=== PATIENT | female | born 1980 | race Caucasian/White ===

== ENCOUNTER → 2017-09-13 | Outpatient (CLI) | payer BC ==
[~2017-09-13] MED LIST: AC325T PO; ACHD5005 PO; AZIT-21 PO; CLC500CT PO; DCS100C PO; HYOS0.1216 PO; IBP800T PO; OXYC-109 PO; PREN1TAB39 PO; VANC10VI PO; VANC125C2 PO; VANCOMYCIN PO; bcp
--- NOTE | 2017-09-13 20:09 | Diagnostic Imaging Report ---
EXAMINATION: Transabdominal and transvaginal pelvic ultrasound. INDICATION: Irregular menstrual cycle. Pelvic pain, dyspareunia. FINDINGS: The uterus is 8.3 x 4.9 x 4.0 cm. The endometrial stripe is 0.7 cm in thickness. The myometrium is fairly heterogeneous with no focal mass identified. The endometrial stripe is 0.8 cm in thickness. The right ovary is 2.6 x 2.8 x 3.4 cm and the left ovary is 2.4 x 2.1 x 1.4 cm. There are arterial and venous waveforms demonstrated in the left and in the right ovary. In the right ovary, there is a 2.2 x 1.4 cm cystic lesion with thickened wall and surrounding vascularity suggestive of a corpus luteum cyst. Minimal amount of free fluid is seen in the pelvis. IMPRESSION: The uterus is slightly enlarged and is heterogeneous with no discrete lesion. Findings could correlate with underlying adenomyosis. Dictated by: Dictated on workstation # [id number]
== END ==
LOC: RAD 14:03
PROVIDERS: ATTEND Family Medicine
DX: N92.6 Irregular menstruation, unspecified (principal); N94.10 Unspecified dyspareunia
CPT/HCPCS: 76830; 76856

== ENCOUNTER 2020-11-07 05:34 | Outpatient (RCR) | payer BC ==
[~2020-11-07] VITALS: Ht 157 cm; Wt 75.0 kg
[~2020-11-07 05:34] MED LIST changes: +FLUO10CA29 PO
[2020-11-11] MEDS ORDERED: IBUP-844 PO (14:45)
[2020-11-11] MEDS ORDERED: SIME80TA16 PO (14:45)
[2020-11-11] MEDS ORDERED: DCS100C PO (14:45)
[2020-11-11] MEDS ORDERED: HYDR-34 PO (14:45)
== END 2020-11-07 10:11 | disposition home or self-care (01) ==
LOC: PREOP 05:34
PROVIDERS: ATTEND Obstetrics & Gynecology
DX: Z01.812 Encounter for preprocedural laboratory examination (principal); N80.9 Endometriosis, unspecified; Z53.9 Procedure and treatment not carried out, unspecified reason

== ENCOUNTER 2020-11-11 09:30 | Day surgery (SDC) | payer BC ==
[~2020-11-11] VITALS: Ht 157 cm; Wt 75.0 kg
[2020-11-11] VITALS (10 sets, daily range): BP systolic 91–105; BP diastolic 49–64
[2020-11-11] MEDS ORDERED: metroNIDAZOLE 500MG/100ML IVPB 100 ML IV ONE (09:45)
[2020-11-11] MEDS ORDERED: ceFAZolin 2 GM IV Premixed 50 ML IV ONE (09:45)
[2020-11-11] MEDS ORDERED: LACTATED RINGERS 1,000 ML IV SCH ×2 (09:45→14:45)
[2020-11-11] MEDS: LACTATED RINGERS 1,000 ML IV PRN ×3 (10:10→13:34)
[2020-11-11 10:22] LABS: BASOPHILS % (AUTO) 1 % (0-10); EOSINOPHILS % (AUTO) 0 % (0-10); HEMATOCRIT 40 % (35-52); HEMOGLOBIN 13.7 g/dL (11.5-16.0); LYMPHOCYTES # (AUTO) 2.1 10^3/uL (1.0-4.0); LYMPHOCYTES % (AUTO) 31 % (12-44); MEAN CORPUSCULAR HEMOGLOBIN 29 pg (25-34); MEAN CORPUSCULAR HGB CONC 34 g/dL (32-36); MEAN CORPUSCULAR VOLUME 87 fL (80-99); MEAN PLATELET VOLUME 10.6 fL (9.0-12.2); MONOCYTES # (AUTO) 0.6 10^3/uL (0.0-1.0); MONOCYTES % (AUTO) 8 % (0-12); NEUTROPHILS # (AUTO) 4.1 10^3/uL (1.8-7.8); NEUTROPHILS % (AUTO) 59 % (42-75); PLATELET COUNT 290 10^3/uL (130-400); WHITE BLOOD COUNT 6.9 10^3/uL (4.3-11.0)
--- NOTE | 2020-11-11 10:24 | Progress Note-Pre Operative ---
Pre-Operative Progress Note H&P Reviewed The H&P was reviewed, patient examined and no changes noted. Date Seen by Provider: Nov 11, 2020 Time Seen by Provider: 10:35 Date H&P Reviewed: Nov 11, 2020 Time H&P Reviewed: 10:35 Pre-Operative Diagnosis: CPP, Dyspareunia, Endometriosis RHONDA MARSH DO Nov 11, 2020 10:24 am
[2020-11-11] MEDS ORDERED: BUPIVACAINE 0.25% 30 ML (SENSORCAINE) VIAL ONE (11:15)
[2020-11-11] MEDS ORDERED: LIDOCAINE PF 2% 5 ML (XYLOCAINE) VIAL ONE (12:18)
[2020-11-11] MEDS ORDERED: proPOfol 200 MG/20 ML (DIPRIVAN) VIAL IV ONE (12:18)
[2020-11-11] MEDS ORDERED: ONDANSETRON 4 MG/2 ML (SDV) Z0FRAN ONE (12:18)
[2020-11-11] MEDS ORDERED: MIDAZOLAM 2 MG/2 ML (VERSED) VIAL ONE (12:18)
[2020-11-11] MEDS ORDERED: SEVOFLURANE (ULTANE) 15 ML INHAL SOLN ONE ×4 (12:18→14:39)
[2020-11-11] MEDS ORDERED: ROCURONIUM 10 MG/ML 5 ML SYRINGE IV ONE (12:18)
[2020-11-11] MEDS ORDERED: fentaNYL INJECTION 100 MCG/2 ML AMP ONE (12:19)
[2020-11-11] MEDS ORDERED: GLYCOPYRROLATE 0.2 MG/ML (ROBINUL) 2 ML VIAL ONE ×2 (13:33→14:31)
[2020-11-11] MEDS ORDERED: PHENYLEPHRINE 100 MCG/ML 10 ML (ANESTHESIA) SYR ONE (13:33)
[2020-11-11] MEDS ORDERED: KETOROLAC 30 MG/ML VIAL ONE (14:27)
[2020-11-11] MEDS ORDERED: NEOSTIGMINE 3 MG/3 ML VIAL ONE (14:31)
--- NOTE | 2020-11-11 14:44 | Discharge Inst-Women's Service ---
Discharge Inst-Women's Serv Depart Medication/Instructions New, Converted or Re-Newed RX: RX on Chart Problems Reviewed?: Yes Consults/Follow Up Additional Follow Up: Yes Orders/Referrals Dr. Hess in 7-10 days and in 8 weeks Activity Activity: Activity as Tolerated Driving Instructions: No Driving for 1 Week NO SMOKING: NO SMOKING Nothing Inside Vagina: No Douching, No [place], No Tampons Diet Discharge Diet: No Restrictions Symptoms to Report to : Bleeding Excessive, Pain Increased, Fever Over 101 Degrees F, Vaginal Bleeding Increase, Questions/Concerns For Any Problems or Questions: Contact Your Physician Skin/Wound Care Infection Signs and Symptoms: Increased Redness, Foul Odor of Wound, Increased Drainage, Skin Itchy or Has a Rash, Increased Swelling, Temperature Above 101 F Operative Area Clean and Dry: Keep Incision Clean/Dry Stitches/Jose C/Dermabond: Dermabond, Care of Stitches Bathing Instructions: RHONDA Howell DO Nov 11, 2020 14:44
[2020-11-11] MEDS ORDERED: ANTACID SUSP 30 ML UDC (MYLANTA) PO PRN (14:45)
[2020-11-11] MEDS ORDERED: DCS100C PO ×2 (14:45)
[2020-11-11] MEDS ORDERED: SIMETHICONE 80 MG (MYLICON) CHEW PO PRN (14:45)
[2020-11-11] MEDS ORDERED: IBUP-844 PO ×2 (14:45)
[2020-11-11] MEDS ORDERED: ZOLPIDEM 5 MG (AMBIEN) TAB PO PRN (14:45)
[2020-11-11] MEDS ORDERED: ONDANSETRON 4 MG/2 ML (SDV) Z0FRAN IV PRN (14:45)
[2020-11-11] MEDS ORDERED: HYDR-34 PO ×2 (14:45)
[2020-11-11] MEDS ORDERED: SIME80TA16 PO ×2 (14:45)
[2020-11-11] MEDS ORDERED: KETOROLAC 30 MG/ML VIAL IV PRN (14:45)
[2020-11-11] MEDS ORDERED: DOCUSATE SODIUM 100 MG (COLACE) CAP PO PRN (14:45)
[2020-11-11] MEDS ORDERED: ONDANSETRON 4 MG/2 ML (SDV) Z0FRAN IVP PRN (15:00)
[2020-11-11] MEDS ORDERED: HYDROmorphone 2 MG/ML VIAL (DILAUDID) IV ONE (15:00)
[2020-11-11] MEDS ORDERED: HYDROmorphone 2 MG/ML VIAL (DILAUDID) ONE (15:02)
--- NOTE | 2020-11-11 15:50 | NUR ---
Patient received from PACU per bed. Patient accompanied via Nevin Aguirre RN and she gave this nurse report. pt alert and oriented. to room 304 . call light within reach. IV infusing without diff. Yuen cath in place and to DD. no concerns voiced via patient. See nursing interventions.
[2020-11-11] MEDS: CHLORASEPTIC LOZENGE MM PRN (16:58)
--- NOTE | 2020-11-11 19:20 | NUR ---
Dr Hess her to see patient.
--- NOTE | 2020-11-11 21:41 | OPERATIVE REPORT ---
DATE OF SERVICE: 11/11/2020 PREOPERATIVE DIAGNOSES: 1. A 40-year-old female with chronic pelvic pain. 2. Dyspareunia. 3. Endometriosis with appropriate response to Depo Lupron. POSTOPERATIVE DIAGNOSES: 1. A 40-year-old female with chronic pelvic pain. 2. Dyspareunia. 3. Endometriosis with appropriate response to Depo Lupron. PROCEDURE: Robotic-assisted total laparoscopic hysterectomy with bilateral salpingo-oophorectomy. SURGEON: Akash Marsh DO BABY ATTENDANT: Idalia Swann DNP, who was necessary for manipulation and retraction throughout the procedure. ANESTHESIA: General endotracheal. ESTIMATED BLOOD LOSS: Minimal. URINE OUTPUT: 50 mL clear at the end of the procedure. FLUIDS: 1500 mL lactated Ringer's solution. FINDINGS: Adhesions of the omentum to the anterior abdominal wall as well as dense vesicouterine peritoneum adhesions. SPECIMEN SENT: Uterus, bilateral fallopian tubes and ovaries. INDICATIONS FOR PROCEDURE: This 40-year-old female is a patient who had sought care in my office and had extensive concerns and issues in the past with pain with intercourse. We have tried multiple alternative and conservative treatment modalities all with minimal to no success. The patient became very frustrated with the lack of results. Finally, we ended up trying Depo Lupron, which did result in some improvement in her pelvic pain symptoms. Due to this finding, we discussed proceeding with complete removal of her hormonal status in the form of hysterectomy with bilateral salpingo-oophorectomy. Risks of this procedure were discussed with the patient in detail in the preoperative area and preoperative counseling including risk of bleeding, infection, damage to surrounding structures including, but not limited to bowel, bladder, ureter, kidneys, possible need for operation, postoperative complications that may occur, risk from anesthesia, recovery timeframe and even . After everything was discussed with the patient in detail, consent was obtained in the preoperative area, the patient was taken to the operating room. OPERATIVE REPORT IN DETAIL: Once in the operating room, general anesthesia was found to be adequate. She was placed in dorsal lithotomy position, prepped and draped in normal sterile fashion where a timeout was performed. A Yuen catheter was placed using sterile technique. A weighted speculum was inserted into the patient's vagina. Right angle retractor used to visualize the cervix, which was grasped 12 o'clock position using a long Allis clamp and 0 Vicryl suture was then placed anterior lip of the cervix and it offers manipulation and traction on the cervix. The Allis was then removed. The uterine cavity depth was sound and found to be 8 cm. I selected 8 cm Desi uterine manipulator tip and a 3.5 cm colpotomy ring. I advanced manipulator tip into the uterus and the colpotomy ring around the vaginal fornix. Once this was in place, I am able to appreciate excellent bimanual manipulation on exam. I then performed a change of gloves and took my attention to the abdomen after all the other instruments were removed from the patient's vagina. Once in the abdomen, infraumbilically I infiltrated this area using 0.25% Marcaine. I made an 8 mm incision with a knife and directed Veress needle through the incision until intraperitoneal placement confirmed using saline drop test. An opening pressure of 2 mmHg was noted. I proceeded to maximum pressure of 15 mmHg, at which point I removed the Veress needle and introduced an 8 mm laparoscopic da Fly camera trocar. Once this was in place, I am able to confirm intraperitoneal placement using the da Fly laparoscope. I then had the patient placed in steep Trendelenburg and able to visualize all my pelvic anatomy was defined in my findings above. I placed two lateral trocars. These were both 8 mm trocars approximately 8 cm lateral to my infraumbilical trocar. Once these are in place under direct visualization of laparoscope, I bring in the da Fly robot and docked in appropriate fashion placing the vessel sealer in the left hand and monopolar pema in the right hand. I started the procedure by taking down the adhesions of the omentum to the anterior abdominal wall. I then proceeded with the following dissection bilaterally. Starting at the infundibulopelvic ligament, I bipolar cauterized and transected using the vessel sealer. I then grasped the round ligament, which I bipolar cauterized and transected using the vessel sealer. I then am able to grab the entire broad ligament, which I bipolar cauterized and transected using the vessel sealer down to the level of the lower uterine segment, at which point I the anterior and posterior leaflets of the broad ligament, anterior leaflet dissection was taken around the anterior vaginal fornix, posterior leaflet was taken around to the posterior vaginal fornix. This allowed me to skeletonize the uterine vessels laterally, which I bipolar cauterized and transected using the vessel sealer. I then created a colpotomy at 12 o'clock position using monopolar pema and took this circumferentially around the vaginal fornix amputating the cervix away from the vagina. The cervix, uterus, bilateral fallopian tubes and ovaries were then removed through the vagina. I then closed the lateral vaginal apices of the vaginal cuff using 2-0 Vicryl suture in a [id number] fashion colposuspending them to the uterosacral ligament. I then closed the remainder of the vaginal cuff using 2-0 V-Loc in a running fashion, after which there was no active bleeding noted from any of my dissection planes. I then undocked the da Fly robot and proceeded with remainder of the case laparoscopically. I copiously irrigated the pelvis using normal saline. Once again, there was no active bleeding noted from any of my dissection planes. I placed FloSeal hemostatic agent over all my planes of dissection to ensure excellent postoperative hemostasis, after which the patient taken out of steep Trendelenburg where I removed the lateral trocars under direct visualization and laparoscope. The infraumbilical trocar was left in place to release insufflation and to introduce 10 mL of 0.25% Marcaine into the peritoneal cavity for postoperative pain management. I then removed this trocar as well. The skin was then reapproximated using 4-0 Monocryl in interrupted subcuticular stitches. Dermabond was applied to incision and Band-Aids were placed over the incisions as well. Yuen catheter was left in place. The patient tolerated the procedure well and was taken to recovery area in stable condition. Lap and sponge counts were correct at the end of the procedure. Instrument count was correct as well. Two grams of Ancef and 500 mg of Flagyl were given probably for infection prophylaxis. Job ID: [id number] DocumentID: [id number] Dictated Date: 11/11/2020 14:59:31 Commodities Manager Date: 11/11/2020 21:40:19 Dictated By: AKASH MARSH DO
[2020-11-11] MEDS: HYDROcodone/APAP 7.5 MG/325 MG (LORTAB, LORCET PLUS) TABLET PO PRN (23:00)
[2020-11-12 04:40] VITALS: BP 91/44
[2020-11-12] MEDS: IBUPROFEN 600 MG (MOTRIN) TAB PO SCH ×2 (04:40→10:28)
[2020-11-12] MEDS: HYDROcodone/APAP 7.5 MG/325 MG (LORTAB, LORCET PLUS) TABLET PO PRN (05:33)
[2020-11-12] MEDS: CHLORASEPTIC LOZENGE MM PRN (08:17)
[2020-11-12 08:20] VITALS: BP 89/49
--- NOTE | 2020-11-12 08:42 | NUR ---
DR. MARSH TO PT'S BEDSIDE.
--- NOTE | 2020-11-12 10:05 | NUR ---
DISCHARGE PAPERS PROVIDED AND REVIEWED WITH PT, PT VERBALIZES UNDERSTANDING. NO QUESTIONS VOICED. PAPER SIGNED.
--- NOTE | 2020-11-12 10:54 | NUR ---
PT DISCHARGED FROM -304 TO PERSONAL AUTO VIA W/C IN STABLE CONDITION ACC BY Kameron NICHOLAS RN.
--- NOTE | 2020-11-12 14:00 | Anesthesia-General Post-Op ---
General Patient Condition Mental Status/LOC: Same as Preop Cardiovascular: Satisfactory Nausea/Vomiting: Absent Respiratory: Satisfactory Pain: Controlled Complications: Absent Post Op Complications Complications None Follow Up Care/Instructions Patient Instructions None needed. Anesthesia/Patient Condition Patient Condition Patient was seen this morning and she was doing well, no complaints, stable vital signs, no apparent adverse anesthesia problems. ROSANGELA LAO DO Nov 12, 2020 14:00
== END 2020-11-12 10:54 | disposition home or self-care (01) ==
LOC: SDC 09:30 → WS 15:56 → SDC 11-12 10:54
PROVIDERS: ATTEND Obstetrics & Gynecology
DX: N83.202 Unspecified ovarian cyst, left side (principal); N83.201 Unspecified ovarian cyst, right side; N80.1 Endometriosis of ovary; N94.10 Unspecified dyspareunia; N80.3 Endometriosis of pelvic peritoneum; F41.9 Anxiety disorder, unspecified; K21.9 Gastro-esophageal reflux disease without esophagitis; G89.29 Other chronic pain; E66.9 Obesity, unspecified; Z68.30 Body mass index [BMI] 30.0-30.9, adult; Z79.899 Other long term (current) drug therapy; Z87.891 Personal history of nicotine dependence; Z83.3 Family history of diabetes mellitus; Z80.52 Family history of malignant neoplasm of bladder
CPT/HCPCS: 36415; 84703; 85025; 86850; 86900; 86901; 87081; 88307

== ENCOUNTER 2020-11-17 11:34 | Emergency (ER) | payer BC ==
[~2020-11-17] VITALS: Ht 157.5 cm; Wt 72.7 kg
[~2020-11-17 11:34] MED LIST changes: +HYDR-34 PO; +IBUP-844 PO; +SIME80TA16 PO
[2020-11-17 12:09] LABS: BASOPHILS % (AUTO) 1 % (0-10); EOSINOPHILS # (AUTO) 0.2 10^3/uL (0.0-0.3); EOSINOPHILS % (AUTO) 2 % (0-10); HEMATOCRIT 37 % (35-52); LYMPHOCYTES # (AUTO) 2.4 10^3/uL (1.0-4.0); LYMPHOCYTES % (AUTO) 30 % (12-44); MEAN CORPUSCULAR HEMOGLOBIN 29 pg (25-34); MEAN CORPUSCULAR HGB CONC 33 g/dL (32-36); MEAN CORPUSCULAR VOLUME 90 fL (80-99); MEAN PLATELET VOLUME 10.2 fL (9.0-12.2); MONOCYTES # (AUTO) 0.5 10^3/uL (0.0-1.0); MONOCYTES % (AUTO) 7 % (0-12); NEUTROPHILS # (AUTO) 4.7 10^3/uL (1.8-7.8); NEUTROPHILS % (AUTO) 59 % (42-75); PLATELET COUNT 311 10^3/uL (130-400); WHITE BLOOD COUNT 7.9 10^3/uL (4.3-11.0)
[2020-11-17 12:23] LABS: ALBUMIN 4.2 GM/DL (3.2-4.5); CHLORIDE 103 MMOL/L (98-107); POTASSIUM 4.1 MMOL/L (3.6-5.0); SODIUM 137 MMOL/L (135-145)
[2020-11-17 12:24] LABS: CALCIUM 8.9 MG/DL (8.5-10.1)
--- NOTE | 2020-11-17 12:24 | ED Lower Extremity ---
General Chief Complaint: Lower Extremity Stated Complaint: LEG PAIN,S/P HYSTERECTOMY History of Present Illness Date Seen by Provider: Nov 17, 2020 Time Seen by Provider: 12:00 Initial Comments 40-year-old female presents for left medial gastrocnemius pain. On 11/11/2020 she had a hysterectomy by Dr. MARSH, she was discharged on 11/12/2020. She has no history of DVTs in the lower extremity or coagulopathies, she did have COVID-19, diagnosed Mid-Sep. She had pain upon awakening after surgery and her left lower extremity, she reported the pain to the nurse. She was taking Hydrocodone for abdominal pain and it seemed to help with the calf pain, last dose at 0400 today. She reports no BM since surgery, is taking stool softener and medication for constipation. She has been alternating between walking and resting. She did have SCDs on her lower extremities while hospitalized. She is not taking aspirin or any anticoagulants. Explained to patient that we do not have US available on the weekend, but will treat her based on exam and labs, with an outpatient US tomorrow, if indicated. She denies shortness of air, palpitations, or fevers. Onset: other (4-5 days) Severity: moderate (gastroc pain 5/10, up to 7/10 at times.) Pain/Injury Location: left leg (medial gastroc.) Method of Injury: unknown Modifying Factors: Improves With Pain Medication (hydrocodone), Improves With Rest Allergies and Home Medications Allergies Coded Allergies: No Known Drug Allergies (Unverified , 11/06/20) Home Medications Apixaban 5 Mg Tablet, 10 MG PO BID Prescribed by: GAUDENCIO ROBISON on 11/17/20 1250 Docusate Sodium 100 Mg Capsule, 100 MG PO BID PRN for CONSTIPATION-1ST LINE Prescribed by: RHONDA MARSH on 11/11/20 1445 Fluoxetine HCl 10 Mg Capsule, 10 MG PO DAILY, (Reported) Hydrocodone Bit/Acetaminophen 1 Ea Tablet, 2 EA PO Q6H PRN for Pain-See Instructions Prescribed by: RHONDA MARSH on 11/11/20 144 Ibuprofen 600 Mg Tablet, 600 MG PO Q6H Prescribed by: RHONDA MARSH on 11/11/20 1445 Simethicone 80 Mg Tab.chew, 40 MG PO TID PRN for INDIGESTION 2ND LINE Prescribed by: RHONDA MARSH on 11/11/20 1445 Patient Home Medication List Home Medication List Reviewed: Yes Review of Systems Constitutional: no symptoms reported, see HPI Musculoskeletal: see HPI, muscle pain (left medial gastroc.) Skin: no symptoms reported, see HPI; No change in color, No rash All Other Systems Reviewed Negative Unless Noted: Yes Past [place]-Cjreih-Paocob Hx Past Med/Social Hx: Reviewed Nursing Past Med/Soc Hx Patient Social History Alcohol Use: Denies Use Recreational Drug Use: No Smoking Status: Never a Smoker Former Smoker, Quit: Nov 06, 2010 2nd Hand Smoke Exposure: No Recent Foreign Travel: No Contact w/Someone Who Travel: No Recent Hopitalizations: No Physical Abuse: No Sexual Abuse: No Mistreated: No Fear: No Immunizations Up To Date PED Vaccines UTD: No Date of Influenza Vaccine: Sep 02, 2020 Seasonal Allergies Seasonal Allergies: No Past Medical History Surgeries: Yes Section, Gallbladder, Hysterectomy Respiratory: No Currently Using CPAP: No Currently Using BIPAP: No Cardiac: No Neurological: Yes (NO SEIZURES IN OVER 20YRS) Seizure Disorder Reproductive Disorders: No Female Reproductive Disorders: Menstrual Problems, Endometriosis Sexually Transmitted Disease: No HIV/AIDS: No Genitourinary: No Gastrointestinal: Yes Gastroesophageal Reflux, Chronic Constipation, Chronic Diarrhea, Irritable Bowel Musculoskeletal: No Endocrine: No HEENT: Yes (READING GLASSES) Loss of Vision: Denies Hearing Impairment: Denies Cancer: No Psychosocial: Yes Anxiety Integumentary: No Blood Disorders: Yes (EXTRA ANTIBODY E) Adverse Reaction/Blood Tranf: No (N/A) Physical Exam Vital Signs Vital Signs - First Documented 11/17/20 11:40 Temp 36.1 Pulse 67 Resp 18 B/P (MAP) 122/64 (83) Pulse Ox 99 O2 Delivery Room Air Capillary Refill : Height, Weight, BMI Height: 5'2" Weight: 160lbs. oz. 72.009520mk; 30.42 BMI Method:Stated General Appearance: WD/WN, no apparent distress HEENT: PERRL/EOMI, normal ENT inspection Neck: non-tender, full range of motion, supple, normal inspection Cardiovascular: normal peripheral pulses (2+ pedal pulses, cap refill in left toes immediate), regular rate, rhythm, no edema Respiratory: chest non-tender, lungs clear, normal breath sounds Gastrointestinal: normal bowel sounds, soft; No distended; tenderness (mild in lower abdomen, over surgical sites), other (incisions to abd from Laproscopy shows mild ecchymosis, no dranage or warmth.) Legs: left leg normal inspection, left leg normal range of motion, left leg no evidence of injury, left leg soft tissue tenderness (Medial gastrocnemius), left leg other (Pain with Homans sign) Neurologic/Tendon: normal sensation, normal motor functions Neurologic/Psychiatric: no motor/sensory deficits, alert, normal mood/affect, oriented x 3 Skin: normal color, warm/dry; No cool; other (No erythema or warmth left lower extremity. No swelling to the left ankle or foot, exam symmetric bilateral lower extremities.) Lymphatic: no adenopathy Progress/Results/Core Measures Results/Orders Lab Results Laboratory Tests Test 11/17/20 12:00 Range/Units White Blood Count 7.9 4.3-11.0 10^3/uL Red Blood Count 4.10 3.80-5.11 10^6/uL Hemoglobin 12.0 11.5-16.0 g/dL Hematocrit 37 35-52 % Mean Corpuscular Volume 90 80-99 fL Mean Corpuscular Hemoglobin 29 25-34 pg Mean Corpuscular Hemoglobin Concent 33 32-36 g/dL Red Cell Distribution Width 12.8 10.0-14.5 % Platelet Count 311 130-400 10^3/uL Mean Platelet Volume 10.2 9.0-12.2 fL Immature Granulocyte % (Auto) 2 % Neutrophils (%) (Auto) 59 42-75 % Lymphocytes (%) (Auto) 30 12-44 % Monocytes (%) (Auto) 7 0-12 % Eosinophils (%) (Auto) 2 0-10 % Basophils (%) (Auto) 1 0-10 % Neutrophils # (Auto) 4.7 1.8-7.8 10^3/uL Lymphocytes # (Auto) 2.4 1.0-4.0 10^3/uL Monocytes # (Auto) 0.5 0.0-1.0 10^3/uL Eosinophils # (Auto) 0.2 0.0-0.3 10^3/uL Basophils # (Auto) 0.0 0.0-0.1 10^3/uL Immature Granulocyte # (Auto) 0.1 0.0-0.1 10^3/uL D-Dimer 0.83 H 0.00-0.49 UG/ML Sodium Level 137 135-145 MMOL/L Potassium Level 4.1 3.6-5.0 MMOL/L Chloride Level 103 98-107 MMOL/L Carbon Dioxide Level 23 21-32 MMOL/L Anion Gap 11 5-14 MMOL/L Blood Urea Nitrogen 12 7-18 MG/DL Creatinine 0.73 0.60-1.30 MG/DL Estimat Glomerular Filtration Rate > 60 BUN/Creatinine Ratio 16 Glucose Level 89 70-105 MG/DL Calcium Level 8.9 8.5-10.1 MG/DL Corrected Calcium 8.7 8.5-10.1 MG/DL Total Bilirubin 0.3 0.1-1.0 MG/DL Aspartate Amino Transf (AST/SGOT) 35 H 5-34 U/L Alanine Aminotransferase (ALT/SGPT) 69 H 0-55 U/L Alkaline Phosphatase 74 40-136 U/L Total Protein 7.0 6.4-8.2 GM/DL Albumin 4.2 3.2-4.5 GM/DL Vital Signs/I&O 11/17/20 11:40 Temp 36.1 Pulse 67 Resp 18 B/P (MAP) 122/64 (83) Pulse Ox 99 O2 Delivery Room Air Progress Progress Note : Time: 12:00 Progress Note Patient seen and evaluated, symptoms seem to be more musculoskeletal in nature however since ultrasound cannot be completed for definitive diagnosis. We will check labs and plan for an outpatient ultrasound tomorrow. Encourage patient to continue taking her stool softener and medications for constipation. As well as walking and increasing water intake. She reports no bleeding from her abdominal incisions, trace vaginal bleeding 11/13/20, none since then. 1240 D-Dimer 0.83, all other labs WNL. Discussed the patient's assessment and lab findings with Dr. MARSH, agreed with recommendation to start on Eliquis, will provide 3 doses, she will have an outpatient ultrasound tomorrow and further treatment being guided by Dr. Marsh. 1245 discharge instructions and return precautions reviewed with the patient. She understands the plan of care with starting the medication and having the outpatient ultrasound tomorrow. Discharge instructions and warning signs related to anticoagulants reviewed in detail. Departure Impression Primary Impression: Postoperative pain of extremity Disposition: 01 HOME, SELF-CARE Condition: Stable Departure-Patient Inst. Decision time for Depature: 12:45 Referrals: BOLIVAR HOPE MD (PCP/Family) Primary Care Physician RHONDA MARSH DO Patient Instructions: Deep Vein Thrombosis (Blood Clots in the Legs) (DC) Add. Discharge Instructions: Call [phone] tomorrow morning and ask for scheduling, they will coordinate the time for your ultrasound with radiology. You need to have the Ultrasound on 11/18/20, if any issues with scheduling, call Dr. Mrash's office. Take Eliquis as prescribed. Pending the results of your ultrasound, Dr. Marsh will continue it or guide further treatment. Continue to ambulate, increase water intake 16 ounces every 2 hours while awake, usual pain medication, stool softeners and medications for constipation. Do not massage your left calf, move your ankle up and down, if you are sedentary. Try to walk 5-10 min every hour, while awake. Follow-up with Dr. Marsh for any new concerns. Return to the emergency department for shortness of breath, bleeding, or new urgent healthcare concerns. All discharge instructions reviewed with patient and/or family. Voiced understanding. Scripts Apixaban (Eliquis) 5 Mg Tablet 10 MG PO BID, #6 TAB 0 Refills Prov: GAUDENCIO ROBISON 11/17/20 Copy Copies To 1: RHONDA MARSH AMY ARNP Nov 17, 2020 12:24
[2020-11-17 12:25] LABS: GLUCOSE 89 MG/DL (70-105)
[2020-11-17 12:26] LABS: CARBON DIOXIDE 23 MMOL/L (21-32)
[2020-11-17 12:27] LABS: BILIRUBIN,TOTAL 0.3 MG/DL (0.1-1.0)
[2020-11-17 12:29] LABS: ALKALINE PHOSPHATASE 74 U/L (40-136); CREATININE SERUM 0.73 MG/DL (0.60-1.30); GFR ESTIMATED > 60
[2020-11-17 12:30] LABS: BUN/CREATININE RATIO 16
[2020-11-17 12:32] LABS: ALANINE AMINOTRANSFERASE 69 U/L (0-55)
[2020-11-17] MEDS ORDERED: APIX5TAB PO (12:50)
[2020-11-17 12:55] VITALS: BP 111/48
== END 2020-11-17 12:55 | disposition home or self-care (01) ==
LOC: EDUNIT# 11:34 → ER 11:36
DX: G89.18 Other acute postprocedural pain (principal); Z87.891 Personal history of nicotine dependence; Z79.01 Long term (current) use of anticoagulants
CPT/HCPCS: 36415; 80053; 85025; 85379; 99283

== ENCOUNTER → 2020-11-18 | Outpatient (CLI) | payer BC ==
[~2020-11-18] MED LIST changes: +APIX5TAB PO
--- NOTE | 2020-11-18 09:44 | Diagnostic Imaging Report ---
EXAMINATION: US Lower Extremity Venous Duplex Left. TECHNIQUE: Multiple real-time grayscale images were obtained over the left lower extremity in various projections. Additional spectral analysis and color Doppler duplex images were also obtained. HISTORY: Left calf pain. Postop hysterectomy. COMPARISON: None available. FINDINGS: The left common femoral vein, deep femoral vein, superficial femoral vein and popliteal vein are patent with normal vera scale and doppler appearance. There is normal respiratory variation and augmentation. IMPRESSION: 1. No DVT of the left lower extremity. Dictated by: Dictated on workstation # [id number]
== END ==
LOC: RAD 08:55
PROVIDERS: ATTEND Nurse Practitioner
DX: M79.662 Pain in left lower leg (principal); Z90.710 Acquired absence of both cervix and uterus

== ENCOUNTER → 2020-12-03 | Outpatient (CLI) | payer BC ==
[~2020-12-03] MED LIST changes: +CATHETER FLUSH 10 ML SYR IV PRN; +HOLD METFORMIN - RECEIVED CONTRAST 20 ML VIAL IV SCH; +IOHEXOL 350 MG/ML 100 ML (OMNIPAQUE 350) VIAL IV ONE; +NS 100 ML (IVPB) BAG IV ONE
--- NOTE | 2020-12-03 16:40 | Diagnostic Imaging Report ---
EXAMINATION: CT Abdomen and Pelvis with intravenous contrast. TECHNIQUE: Multiple contiguous axial images were obtained through the abdomen and pelvis after the uneventful administration of intravenous contrast. All CT scans use one or more of the following dose optimizing techniques: automated exposure control, MA and/or KvP adjustment based on a patient size and exam type, or iterative reconstruction. HISTORY: Postprocedural pain. COMPARISON: CT abdomen/pelvis 05/05/2013. FINDINGS: Lung bases: The lung bases are clear. Solid organs: The liver is normal without focal lesion. The gallbladder is surgically absent. There is no biliary ductal dilation. Pancreas is normal. Spleen is normal. Adrenal glands are normal. The kidneys are normal without hydronephrosis. Bowel: The stomach and small bowel are normal without obstruction. The colon and appendix are normal. Peritoneum: There is no intraperitoneal free fluid or free air. No suspicious lymphadenopathy. Vasculature: Normal without aneurysm. Musculoskeletal: No suspicious osseous lesion or compression fracture. Bilateral L5 pars defects. Pelvis: The uterus is surgically absent. No adnexal mass. The urinary bladder is normal. IMPRESSION: 1. No acute abnormality in the abdomen or pelvis. Dictated by: Dictated on workstation # [id number]
== END ==
LOC: RAD 15:27
PROVIDERS: ATTEND Obstetrics & Gynecology
DX: G89.18 Other acute postprocedural pain (principal)
CPT/HCPCS: 74177

== ENCOUNTER → 2021-01-17 | Outpatient (CLI) | payer BC ==
[~2021-01-17] MED LIST changes: -CATHETER FLUSH 10 ML SYR IV PRN; -HOLD METFORMIN - RECEIVED CONTRAST 20 ML VIAL IV SCH; -IOHEXOL 350 MG/ML 100 ML (OMNIPAQUE 350) VIAL IV ONE; -NS 100 ML (IVPB) BAG IV ONE
--- NOTE | 2021-01-20 08:21 | Diagnostic Imaging Report ---
INDICATION: Routine screening. No prior mammograms are available for comparison. This a baseline study. 2-D and 3-D bilateral screening mammography was performed with CAD. Scattered fibroglandular densities are identified bilaterally. No dominant mass or malignant appearing microcalcifications are seen. Axillae are unremarkable. IMPRESSION: BI-RADS Category 1 No mammographic features suspicious for malignancy are identified. ACR BI-RADS Category 1: Negative. Result letter will be mailed to the patient. Note: At least 10% of breast cancer is not imaged by mammography. Dictated by: Dictated on workstation # [id number]
== END ==
LOC: RAD 14:45
PROVIDERS: ATTEND Obstetrics & Gynecology
DX: Z12.31 Encounter for screening mammogram for malignant neoplasm of breast (principal)
CPT/HCPCS: 77063; 77067

== ENCOUNTER → 2022-01-19 | Outpatient (CLI) | payer BC ==
[~2022-01-19] MED LIST changes: +DOCU-239 PO
--- NOTE | 2022-01-19 20:30 | Diagnostic Imaging Report ---
INDICATION: Digital mammogram bilateral screening. At this time there is no current complaint. COMPARISON: This study was compared to the prior exam of 01/17/2021. EXAMINATION: Bilateral digital screening mammogram with CAD. 3D tomographic images were obtained and reviewed. The current study was also evaluated with a Computer Aided Detection (CAD) system. FINDINGS: There are scattered fibroglandular densities in both breasts which could obscure a lesion. Overall, there does not appear to have been any significant change when compared to the prior exam. No primary or secondary sign of malignancy is noted. IMPRESSION: There is no radiographic evidence for malignancy. ACR BI-RADS Category 1: Negative. Result letter will be mailed to the patient. Note: At least 10% of breast cancer is not imaged by mammography. Dictated by: Dictated on workstation # [id number]
== END ==
LOC: RAD 15:00
PROVIDERS: ATTEND Obstetrics & Gynecology
DX: Z12.31 Encounter for screening mammogram for malignant neoplasm of breast (principal)
CPT/HCPCS: 77063; 77067

== ENCOUNTER → 2022-02-03 | Outpatient (CLI) | payer BC ==
--- NOTE | 2022-02-03 14:21 | Diagnostic Imaging Report ---
INDICATION: Hematuria and back pain. TIME OF EXAM: 11:18 AM Bowel gas pattern is unremarkable. No definite radiopaque urinary tract calculi are identified. No free air is seen. There is moderate stool in the colon. IMPRESSION: No acute feature detected. Dictated by: Dictated on workstation # [id number]
== END ==
LOC: RAD 10:56
PROVIDERS: ATTEND Nurse Practitioner Family
DX: M54.9 Dorsalgia, unspecified (principal); R31.9 Hematuria, unspecified
CPT/HCPCS: 74018

== ENCOUNTER 2022-04-27 08:40 | Outpatient (RCR) | payer BC ==
[2022-04-25] MEDS: cefTRIAXone 1,000 MG VIAL IM SCH (10:00)
[2022-04-25] MEDS: LIDOCAINE 1% INJ 20 ML VIAL INJ SCH (10:01)
[2022-04-25 10:04] VITALS: BP 99/59
[2022-04-26] MEDS: LIDOCAINE 1% INJ 20 ML VIAL INJ SCH (09:05)
[2022-04-26] MEDS: cefTRIAXone 1,000 MG VIAL IM SCH (09:05)
[2022-04-26 09:10] VITALS: BP 106/64
[~2022-04-27] VITALS: Wt 72.7 kg
[2022-04-27] MEDS: LIDOCAINE 1% INJ 20 ML VIAL INJ SCH (08:58)
[2022-04-27] MEDS: cefTRIAXone 1,000 MG VIAL IM SCH (08:58)
[2022-04-27 09:00] VITALS: BP 105/62
== END 2022-04-27 09:05 | disposition home or self-care (01) ==
LOC: SDC 08:40
PROVIDERS: ATTEND Nurse Practitioner Family
DX: R21 Rash and other nonspecific skin eruption (principal)
CPT/HCPCS: 96372

== ENCOUNTER → 2023-01-20 | Outpatient (CLI) | payer BC ==
--- NOTE | 2023-01-21 12:42 | Diagnostic Imaging Report ---
Indication: Routine screening. Comparison is made with prior mammogram from 01/19/2022 and 01/17/2021. 2-D and 3-D bilateral screening mammography was performed with CAD. CAD is utilized. The current study was also evaluated with a Computer Aided Detection (CAD) system. Scattered fibroglandular densities are identified bilaterally. There is a density in the superior left breast at mid depth which appears to be slightly more prominent than prior exams. No correlate on the CC view is identified. Additional views would be recommended. Right breast unremarkable. No malignant-appearing microcalcifications are seen. Axillae are unremarkable. IMPRESSION: BI-RADS 0 Left breast density. Additional views are recommended for further evaluation. ACR BI-RADS Category 0: Incomplete. (Needs additional imaging evaluation). Result letter will be mailed to the patient. Note: At least 10% of breast cancer is not imaged by mammography. Dictated by: Dictated on workstation # [id number]
== END ==
LOC: RAD 15:45
PROVIDERS: ATTEND Obstetrics & Gynecology
DX: Z12.31 Encounter for screening mammogram for malignant neoplasm of breast (principal)
CPT/HCPCS: 77063; 77067

== ENCOUNTER → 2023-02-04 | Outpatient (CLI) | payer BC ==
--- NOTE | 2023-02-04 16:21 | Diagnostic Imaging Report ---
Ultrasound left breast limited. Indication: Abnormal mammogram Screening mammogram performed on 01/20/2023 noted a density in the superior left breast at mid depth. This is only seen on MLO view. The diagnostic mammogram performed prior to the study failed to show any sign of malignancy in this area. On this exam there is no discrete solid or cystic mass identified. I suspect that the density seen on screening mammogram was related to fibroglandular tissue alone. Even so, it may prove worthwhile to have a short-term (6 month) followup mammogram and possibly ultrasound of the left breast for further study. Impression: There is no evidence of malignancy. Recommendations as above. ACR BI-RADS Category 3: Probably benign findings. Result letter will be mailed to the patient. Note: At least 10% of breast cancer is not imaged by mammography. Dictated by: Dictated on workstation # [id number]
--- NOTE | 2023-02-04 19:49 | Diagnostic Imaging Report ---
INDICATION: Abnormal mammogram. EXAMINATION: 3D unilateral diagnostic left mammogram with CAD. The current study was also evaluated with a Computer Aided Detection (CAD) system. FINDINGS: The screening mammogram performed on 01/20/2023 noted a density in the superior aspect of the left breast at mid depth. This is only seen on the MLO view. On this exam that finding is not as conspicuous on the compression views and it is difficult to identify with certainty on the ML view. I suspect that the area in question is related to fibroglandular tissue alone. Even so, I would recommend that ultrasound of the left breast be performed for further study. IMPRESSION: Ultrasound of the left breast would be recommended for further evaluation. ACR BI-RADS Category 0: Incomplete. (Needs additional imaging evaluation). Result letter will be mailed to the patient. Note: At least 10% of breast cancer is not imaged by mammography. Dictated by: Dictated on workstation # [id number]
== END ==
LOC: RAD 13:45
PROVIDERS: ATTEND Family Medicine
DX: R92.8 Other abnormal and inconclusive findings on diagnostic imaging of breast (principal)
CPT/HCPCS: 76642; 77065; G0279

== ENCOUNTER → 2023-08-20 | Outpatient (CLI) | payer BC ==
--- NOTE | 2023-08-20 14:30 | Diagnostic Imaging Report ---
INDICATION: Six-month followup left breast density. Correlation is made with prior mammogram from 01/18/2023 and 02/04/2023. Unilateral left 2-D and 3-D diagnostic mammography was performed with CAD. Scattered fibroglandular densities in the left breast are noted. Density noted in the superior left breast on the MLO view is less prominent on today's study and most likely represent superimposed fibroglandular tissue. No mass is identified. No malignant-appearing microcalcifications are identified. The left axilla is unremarkable. IMPRESSION: No mammographic features suspicious for malignancy are identified. The patient may return to routine annual screening mammography. ACR BI-RADS Category 1: Negative. Result letter will be mailed to the patient. Note: At least 10% of breast cancer is not imaged by mammography. BI-RADS Category 1 Dictated by: Dictated on workstation # [id number]
== END ==
LOC: RAD 13:43
PROVIDERS: ATTEND Obstetrics & Gynecology
DX: R92.8 Other abnormal and inconclusive findings on diagnostic imaging of breast (principal)
CPT/HCPCS: 77065; G0279